=== PATIENT | male | born 1975 | race Caucasian/White ===

== ENCOUNTER 2020-07-06 19:12 | Emergency (ER) | payer OTHER ==
[~2020-07-06] VITALS: Ht 177.8 cm; Wt 149.7 kg
[~2020-07-06 19:12] MED LIST: ACET325 PO; ASMANEX110 MC1 INH; ASPIR 8181 M1 PO; BUPR150ER PO; BUSP5 PO; Ceftriaxone2 G1 IV; ENTRESTO 24 MG1 EACH PO; EPLE25 PO; FURO80 PO; MAGOXI400 PO; NEBI5 PO; OSTERA TABLET1 EACH PO; Omeprazole20 M1 PO; SOTO80 PO; TRAM50 PO
[2020-07-06] MEDS ORDERED: ENTRESTO 49 MG1 EAC2 PO (21:37)
[2020-07-06] MEDS ORDERED: Keflex250 MG PO (21:38)
[2020-07-06 22:31] LABS: BASOPHILS ABSOLUTE AUTO 0.05 K/mm3 (0.00-0.23); BASOPHILS PERCENT AUTO 1 % (0-2); EOSINOPHILS ABSOLUTE AUTO 0.04 K/mm3 (0.00-0.68); EOSINOPHILS PERCENT AUTO 0 % (0-6); Hematocrit 44.8 % (37.0-53.0); Hemoglobin 14.8 g/dL (13.5-17.5); IMMATURE GRAN ABSOLUTE AUTO 0.03 K/mm3 (0.00-0.10); IMMATURE GRAN PERCENT AUTO 0 % (0-1); LYMPHOCYTES ABSOLUTE AUTO 1.94 K/mm3 (0.84-5.20); LYMPHOCYTES PERCENT AUTO 19 % (21-46); MONOCYTES ABSOLUTE AUTO 0.68 K/mm3 (0.16-1.47); MONOCYTES PERCENT AUTO 7 % (4-13); Mean Corpuscular HGB 28.6 pg (26.0-34.0); Mean Corpuscular Volume 87 fL (80-100); Mean Platelet Volume 10.5 fL (9.1-12.4); NEUTROPHILS PERCENT AUTO 73 % (41-73); Platelet Count 150 K/mm3 (150-400); RDW Coefficient Variation 13.2 % (11.7-14.2); Red Blood Cell Count 5.17 M/mm3 (4.30-5.90); White Blood Cell Count 10.14 K/mm3 (4.00-11.30)
[2020-07-06 22:51] LABS: Alanine Aminotransfer (ALT/SGP 38 U/L (12-78); Albumin, Blood 3.5 g/dL (3.4-5.0); Albumin/Globulin Ratio 0.9 (0.8-1.8); Alk Phos 77 U/L (50-136); Anion Gap 6 mmol/L (6-16); Aspartate Aminotrans (AST/SGOT 24 U/L (12-37); Bilirubin, Total 1.6 mg/dL (0.1-1.0); Blood Urea Nitrogen 11 mg/dL (8-24); Bun/Creatinine Ratio 13.9 (12.0-20.0); CO2, Blood 30 mmol/L (21-32); Calcium, Blood 8.9 mg/dL (8.5-10.1); Chloride, Blood 104 mmol/L (98-108); Creatinine, Blood 0.79 mg/dL (0.60-1.20); Globulin, Blood 4.1 g/dL (2.2-4.0); Glomerular Filtration Rate >60 (60-); Glucose, Blood 113 mg/dL (70-99); Potassium, Blood 3.6 mmol/L (3.5-5.5); Sodium, Blood 140 mmol/L (136-145); Total Protein, Blood 7.6 g/dL (6.4-8.2); Troponin I <0.015 ng/mL (0.000-0.040)
[2020-07-07 00:38] LABS: Source, Urine Voided
[2020-07-07 00:40] LABS: Bilirubin, Urine Neg (Neg); Blood, Urine 1+ (Neg); Glucose Qualitative, Urine Neg (Neg); Ketones, Urine Neg (Neg); Leukocyte Esterase, Urine 1+ (Neg); Nitrite, Urine Neg (Neg); Protein, Urine Neg (Neg); Urobilinogen, Urine NORM (Normal)
[2020-07-07 00:44] LABS: Appearance, Urine Clear (Clear); Color, Urine Yellow (P-Yellow)
[2020-07-07 00:59] LABS: Bacteria Not Seen /hpf; Red Blood Cells, Urine Rare /hpf (0-2); Squamous Epithelial Cells Not Seen /hpf (Few); White Blood Cells, Urine Rare /hpf (0-5)
[2020-07-07 01:15] LABS: Influenza A, PCR Negative (NEGATIVE); Influenza B, PCR Negative (NEGATIVE); Resp Syncytial Virus, PCR Negative (NEGATIVE); SARS-Cov-2 (COVID-19) PCR, MMC Negative (NEGATIVE)
== END 2020-07-07 01:44 | disposition home or self-care (01) ==
LOC: ER 19:12
PROVIDERS: Emergency Medicine
DX: Z00.00 Encounter for general adult medical examination without abnormal findings (principal); I50.9 Heart failure, unspecified; Z88.0 Allergy status to penicillin; Z79.82 Long term (current) use of aspirin; Z79.899 Other long term (current) drug therapy; Z20.822 Contact with and (suspected) exposure to COVID-19
CPT/HCPCS: 0241U; 36415; 71045; 80053; 81001; 83605; 83880; 84484; 85025; 87040; 99284-25

== ENCOUNTER → 2021-07-24 | Outpatient (CLI) | payer BC ==
[~2021-07-24] MED LIST changes: +ENTRESTO 49 MG1 EAC2 PO; +Keflex250 MG PO
[2021-07-24 10:11] LABS: BASOPHILS ABSOLUTE AUTO 0.06 K/mm3 (0.00-0.23); BASOPHILS PERCENT AUTO 1 % (0-2); EOSINOPHILS ABSOLUTE AUTO 0.07 K/mm3 (0.00-0.68); EOSINOPHILS PERCENT AUTO 1 % (0-6); Hematocrit 43.3 % (37.0-53.0); Hemoglobin 13.6 g/dL (13.5-17.5); IMMATURE GRAN ABSOLUTE AUTO 0.04 K/mm3 (0.00-0.10); IMMATURE GRAN PERCENT AUTO 0 % (0-1); LYMPHOCYTES ABSOLUTE AUTO 1.06 K/mm3 (0.84-5.20); LYMPHOCYTES PERCENT AUTO 9 % (21-46); MONOCYTES ABSOLUTE AUTO 0.76 K/mm3 (0.16-1.47); MONOCYTES PERCENT AUTO 6 % (4-13); Mean Corpuscular HGB Conc 31.4 g/dL (31.5-36.5); Mean Corpuscular Volume 83 fL (80-100); Mean Platelet Volume 10.7 fL (9.1-12.4); NEUTROPHILS ABSOLUTE AUTO 9.95 K/mm3 (1.96-9.15); NEUTROPHILS PERCENT AUTO 83 % (41-73); Platelet Count 215 K/mm3 (150-400); RDW Coefficient Variation 17.7 % (11.7-14.2); RDW Standard Deviation 49.4 fL (35.1-46.3); Red Blood Cell Count 5.23 M/mm3 (4.30-5.90); White Blood Cell Count 11.94 K/mm3 (4.00-11.30)
[2021-07-24 10:37] LABS: Alanine Aminotransfer (ALT/SGP 19 U/L (12-78); Albumin, Blood 3.5 g/dL (3.4-5.0); Albumin/Globulin Ratio 0.8 (0.8-1.8); Alk Phos 68 U/L (40-126); Anion Gap 10 mmol/L (6-16); Aspartate Aminotrans (AST/SGOT 17 U/L (12-37); Bilirubin, Total 2.6 mg/dL (0.1-1.0); Blood Urea Nitrogen 17 mg/dL (8-24); Bun/Creatinine Ratio 15.5 (12.0-20.0); CO2, Blood 30 mmol/L (21-32); Calcium, Blood 8.9 mg/dL (8.5-10.1); Chloride, Blood 99 mmol/L (98-108); Globulin, Blood 4.4 g/dL (2.2-4.0); Glomerular Filtration Rate >60 (60-); Glucose, Blood 95 mg/dL (70-99); Sodium, Blood 139 mmol/L (136-145); Thyroid Stimulating Hormone 2.741 uIU/mL (0.360-4.800); Total Protein, Blood 7.9 g/dL (6.4-8.2)
== END ==
LOC: LAB SHORT 10:05 → LAB 10:05
PROVIDERS: Physician Assistant
DX: R53.83 Other fatigue (principal); Z79.82 Long term (current) use of aspirin
CPT/HCPCS: 80053; 83690; 83735; 83880; 84443; 84484; 85025; 85379

== ENCOUNTER 2021-08-12 14:09 | Inpatient (IN) | payer BC, OTHER ==
[~2021-08-12] VITALS: Ht 177.8 cm; Wt 152.4 kg
[~2021-08-12 14:09] MED LIST changes: +BUSP10 PO; -ENTRESTO 49 MG1 EAC2 PO
[2021-08-12 14:57] LABS: BASOPHILS ABSOLUTE AUTO 0.09 K/mm3 (0.00-0.23); BASOPHILS PERCENT AUTO 1 % (0-2); EOSINOPHILS ABSOLUTE AUTO 0.07 K/mm3 (0.00-0.68); EOSINOPHILS PERCENT AUTO 1 % (0-6); Hematocrit 48.7 % (37.0-53.0); Hemoglobin 15.1 g/dL (13.5-17.5); IMMATURE GRAN ABSOLUTE AUTO 0.04 K/mm3 (0.00-0.10); IMMATURE GRAN PERCENT AUTO 0 % (0-1); LYMPHOCYTES ABSOLUTE AUTO 1.15 K/mm3 (0.84-5.20); LYMPHOCYTES PERCENT AUTO 9 % (21-46); MONOCYTES ABSOLUTE AUTO 1.03 K/mm3 (0.16-1.47); MONOCYTES PERCENT AUTO 8 % (4-13); Mean Corpuscular HGB 25.6 pg (26.0-34.0); Mean Corpuscular Volume 83 fL (80-100); Mean Platelet Volume 10.9 fL (9.1-12.4); NEUTROPHILS ABSOLUTE AUTO 11.17 K/mm3 (1.96-9.15); NEUTROPHILS PERCENT AUTO 82 % (41-73); Platelet Count 297 K/mm3 (150-400); RDW Coefficient Variation 17.9 % (11.7-14.2); RDW Standard Deviation 51.7 fL (35.1-46.3); White Blood Cell Count 13.55 K/mm3 (4.00-11.30)
[2021-08-12 15:10] LABS: International Normalized Ratio 1.28; Prothrombin Time Results 13.2 Sec (9.7-11.5)
[2021-08-12 15:31] LABS: Alanine Aminotransfer (ALT/SGP 19 U/L (12-78); Albumin, Blood 3.3 g/dL (3.4-5.0); Albumin/Globulin Ratio 0.7 (0.8-1.8); Alk Phos 75 U/L (50-136); Anion Gap 6 mmol/L (6-16); Aspartate Aminotrans (AST/SGOT 40 U/L (12-37); Blood Urea Nitrogen 18 mg/dL (8-24); Bun/Creatinine Ratio 15.9 (12.0-20.0); CO2, Blood 30 mmol/L (21-32); Calcium, Blood 9.4 mg/dL (8.5-10.1); Chloride, Blood 96 mmol/L (98-108); Creatinine, Blood 1.13 mg/dL (0.60-1.20); Globulin, Blood 4.6 g/dL (2.2-4.0); Glomerular Filtration Rate >60 (60-); Glucose, Blood 131 mg/dL (70-99); Sodium, Blood 132 mmol/L (136-145); Total Protein, Blood 7.9 g/dL (6.4-8.2)
[2021-08-12 19:45] LABS: Influenza A, PCR NEGATIVE (NEGATIVE); Influenza B, PCR NEGATIVE (NEGATIVE); Resp Syncytial Virus, PCR NEGATIVE (NEGATIVE); SARS-Cov-2 (COVID-19) PCR, MMC NEGATIVE (NEGATIVE)
[2021-08-12 23:29] LABS: Percent Saturation 9.7 % (20.0-50.0)
--- NOTE | 2021-08-13 05:00 | NUR ---
PT CAME FROM THE ED DUE TO PCP REFERAL FOR INCREASED SOB, BLE EDEMA, AND ABD DISTENTION AND PAIN. UPON EXAMINATION PT IT VERY SOB AFTER ONLY WALKING A FEW STEPS AND EVEN AT REST. PT'S ABD IS VERY DISTENTED BUT DOES NOT STATED ANY PAIN UPON PALPITATION. PT IS ALERT AND ORIENTED X4, TELE MONITORED- ST-NSR, ON RA SATING >90, PT IS INDEPENDENT IN THE ROOM. PT IS EXPECTED TO HAVE A EGD WITH ANESTHESIA AND POSSIBLE PARACENTESIS TODAY. PT IS TO BE NPO AFTER NOON, PT MADE AWARE AND COMPLIANT. NO FURTHER EVENTS OVERNIGHT, PT CALL LIGHT AND BELONGINGS WITHIN REACH.
[2021-08-13 05:24] LABS: BASOPHILS ABSOLUTE AUTO 0.08 K/mm3 (0.00-0.23); BASOPHILS PERCENT AUTO 1 % (0-2); EOSINOPHILS ABSOLUTE AUTO 0.08 K/mm3 (0.00-0.68); EOSINOPHILS PERCENT AUTO 1 % (0-6); Hematocrit 44.8 % (37.0-53.0); Hemoglobin 13.7 g/dL (13.5-17.5); IMMATURE GRAN ABSOLUTE AUTO 0.06 K/mm3 (0.00-0.10); IMMATURE GRAN PERCENT AUTO 0 % (0-1); LYMPHOCYTES ABSOLUTE AUTO 1.17 K/mm3 (0.84-5.20); LYMPHOCYTES PERCENT AUTO 9 % (21-46); MONOCYTES ABSOLUTE AUTO 1.21 K/mm3 (0.16-1.47); MONOCYTES PERCENT AUTO 9 % (4-13); Mean Corpuscular HGB 25.3 pg (26.0-34.0); Mean Corpuscular HGB Conc 30.6 g/dL (31.5-36.5); Mean Corpuscular Volume 83 fL (80-100); Mean Platelet Volume 11.1 fL (9.1-12.4); NEUTROPHILS ABSOLUTE AUTO 10.89 K/mm3 (1.96-9.15); NEUTROPHILS PERCENT AUTO 81 % (41-73); Platelet Count 234 K/mm3 (150-400); RDW Coefficient Variation 17.6 % (11.7-14.2); RDW Standard Deviation 51.3 fL (35.1-46.3); Red Blood Cell Count 5.41 M/mm3 (4.30-5.90); White Blood Cell Count 13.49 K/mm3 (4.00-11.30)
[2021-08-13 05:35] LABS: International Normalized Ratio 1.3; Prothrombin Time Results 13.4 Sec (9.7-11.5)
[2021-08-13 05:48] LABS: Alanine Aminotransfer (ALT/SGP 15 U/L (12-78); Albumin/Globulin Ratio 0.8 (0.8-1.8); Alk Phos 68 U/L (50-136); Anion Gap 6 mmol/L (6-16); Aspartate Aminotrans (AST/SGOT 15 U/L (12-37); Bilirubin, Total 2.2 mg/dL (0.1-1.0); Blood Urea Nitrogen 19 mg/dL (8-24); Bun/Creatinine Ratio 16.1 (12.0-20.0); CO2, Blood 29 mmol/L (21-32); Calcium, Blood 8.9 mg/dL (8.5-10.1); Chloride, Blood 99 mmol/L (98-108); Creatinine, Blood 1.18 mg/dL (0.60-1.20); Globulin, Blood 3.8 g/dL (2.2-4.0); Glomerular Filtration Rate >60 (60-); Glucose, Blood 101 mg/dL (70-99); Potassium, Blood 4.8 mmol/L (3.5-5.5); Sodium, Blood 134 mmol/L (136-145); Total Protein, Blood 6.8 g/dL (6.4-8.2)
[2021-08-13 16:17] LABS: Automated BF RBC Count 0.002 M/mm3 (0-0); Automated BF WBC Count 2.046 K/mm3 (0-999); Body Fluid WBC Count 2046 /mm3 (0-999)
[2021-08-13 16:24] LABS: Albumin, Body Fluid 2.1 g/dL
[2021-08-13 16:27] LABS: Appearance, Body Fluid Cloudy (Clear); Color, Body Fluid Yellow (None-Yellow)
[2021-08-13 16:35] LABS: Glucose, Body Fluid 125 mg/dL; Lactate Dehydrogenase, Body Fl 85 U/L; Protein, Body Fluid 3.8 g/dL
--- NOTE | 2021-08-13 16:42 | NUR ---
This [facility] CM visited the patient in his room this morning. Patient was sitting upright on the edge of his bed, alert and pleasant. Patient confirmed his home address as [id number] [place] [address] in [place], and confirmed phone number. Phone number listed is the patient's , Elayne Smith. Pt states that is the best way to reach him. He lives in a single story home with one step to the entrance he uses. Reports that there is a large pillar he relies on to step-up to the entrance of the home. Patient uses a [id number] to travel around the large property. Patient's assists with all ADLs. 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 Patient uses cane in the home. He still drives but, mostly prefers spouse to drive. Patient confirms address is in [facility].
[2021-08-13 17:23] LABS: Total Cell Count, Body Fluid 100
--- NOTE | 2021-08-13 17:50 | NUR ---
08/13/21 1750 JANELLE WRIGHT History, Chart, Medications and Allergies reviewed before start of procedure. 3-LEAD EKG REVIEWED WITH PHYSICIAN PRIOR TO START OF PROCEDURE. O2 VIA POM INTACT THROUGHOUT SEDATION/PROCEDURE. MONITOR INTACT WITH CONTINUOUS PULSE OXIMETRY AND INTERMITTENT BP. GENERAL WITH DR. NEGRO.
--- NOTE | 2021-08-13 18:47 | NUR ---
SHIFT SUMMARY; PATIENT WAS NPO ALL DAY FOR EGD PROCEDURE AND PARACENTISIS. NO VERICES WERE FOUND DURING EGD PROCEDURE AND ONLY A FEW SMALL SAMPLES TAKEN TO CHECK FOR HPYLORI. PATIENT REQUIRED A LMA AND A NASAL TUBE FOR DEPRESSED BREATHING DURING PROCEDURE. HE WAS BROUGHT BACK TO ROOM AFTER HE RECOVERED FROM THE ANESTHESIA AND WAS AO X 4. FAMILY AT BEDSIDE CONVERSING WITH PATIENT. NO COMPLAINTS FROM PATIENT OF ABDOMENAL PAIN OR DISCOMFORT. 2.7 LITERS TAKEN OFF DURING PARACENTESIS. OK TO FEED PATIENT AT 1850 TONIGHT. RED RASH AREA NOTED TO BACK OF PATIENT AND INFORMED. ORDER FOR FLAGYL RECEIVED IV FOR DISCOLORED FLUIDS AFTER PARACENTESIS.
[2021-08-13] MEDS ORDERED: ENTRESTO 49 MG1 EAC2 PO (20:18)
--- NOTE | 2021-08-14 04:24 | NUR ---
SUMMARY: A/OX4, INDEPENDENT IN ROOM AND CALLS APPROPRIATELY TO SPECIFY NEEDS. HE DENIED PAIN AND ALL OTHER COMPLAINTS BUT ADMITS TO DIFFICULTY GETTING COMFORTABLE IN BED D/T ASCITES. PT STATED ABDO FEELS MORE FIRM W/WORSENING DISTENSION T/O NOCTE. IV ABX RECIEVED, LOW NA DIET FOLLOWED AND 1.5L FR REMAINS IN PLACE. RASH TO BACK IS IMPROVING AND BARELY NOTICEABLE. PT WAS NSR/ S.TACH AT 90'S-100'S BPM ON TELEMETRY. VSS/AFEBRILE AND NO ACUTE CHANGES. WCTM AND REPORT TO DAY RN.
[2021-08-14 09:11] LABS: HBSAG SCREEN Negative (Negative); HEP B CORE AB, TOT Negative (Negative); HEP C VIRUS AB 0.1 (0.0-0.9)
[2021-08-14 10:39] LABS: BASOPHILS ABSOLUTE AUTO 0.04 K/mm3 (0.00-0.23); BASOPHILS PERCENT AUTO 0 % (0-2); EOSINOPHILS ABSOLUTE AUTO 0.02 K/mm3 (0.00-0.68); EOSINOPHILS PERCENT AUTO 0 % (0-6); Hematocrit 47.7 % (37.0-53.0); Hemoglobin 14.6 g/dL (13.5-17.5); IMMATURE GRAN ABSOLUTE AUTO 0.04 K/mm3 (0.00-0.10); IMMATURE GRAN PERCENT AUTO 0 % (0-1); LYMPHOCYTES ABSOLUTE AUTO 0.65 K/mm3 (0.84-5.20); LYMPHOCYTES PERCENT AUTO 5 % (21-46); MONOCYTES PERCENT AUTO 7 % (4-13); Mean Corpuscular HGB 25.3 pg (26.0-34.0); Mean Corpuscular HGB Conc 30.6 g/dL (31.5-36.5); Mean Corpuscular Volume 83 fL (80-100); Mean Platelet Volume 10.7 fL (9.1-12.4); NEUTROPHILS ABSOLUTE AUTO 10.76 K/mm3 (1.96-9.15); NEUTROPHILS PERCENT AUTO 87 % (41-73); Platelet Count 226 K/mm3 (150-400); RDW Coefficient Variation 17.8 % (11.7-14.2); RDW Standard Deviation 51.2 fL (35.1-46.3); Red Blood Cell Count 5.77 M/mm3 (4.30-5.90); White Blood Cell Count 12.31 K/mm3 (4.00-11.30)
--- NOTE | 2021-08-14 10:50 | NUR ---
AM NOTE ASSUMED CARE OF PT. A+OX4. DENIES ANY PAIN. NO SOB AT REST, SOME SOB O/E. BLE 3+ PITTING EDEMA. PT WEL EDUCATED ON HIS DIAGNOSIS AND MEDICATIONS. SLIGHT RED RASH NOTED IN TWO CIRCLES ON HIS BACK PT SAID THIS IS IMPROVED. UP TO BR, STEADY GAIT. BED LOW, CALL LIGHT IN REACH. AT BEDSIDE.
[2021-08-14 10:54] LABS: Alanine Aminotransfer (ALT/SGP 17 U/L (12-78); Albumin, Blood 3.2 g/dL (3.4-5.0); Albumin/Globulin Ratio 0.8 (0.8-1.8); Alk Phos 71 U/L (50-136); Anion Gap 7 mmol/L (6-16); Aspartate Aminotrans (AST/SGOT 17 U/L (12-37); Bilirubin, Total 2.5 mg/dL (0.1-1.0); Blood Urea Nitrogen 20 mg/dL (8-24); Bun/Creatinine Ratio 16.8 (12.0-20.0); CO2, Blood 31 mmol/L (21-32); Calcium, Blood 8.9 mg/dL (8.5-10.1); Chloride, Blood 97 mmol/L (98-108); Creatinine, Blood 1.19 mg/dL (0.60-1.20); Globulin, Blood 4.2 g/dL (2.2-4.0); Glomerular Filtration Rate >60 (60-); Glucose, Blood 138 mg/dL (70-99); Potassium, Blood 4.3 mmol/L (3.5-5.5); Sodium, Blood 135 mmol/L (136-145); Total Protein, Blood 7.4 g/dL (6.4-8.2)
--- NOTE | 2021-08-14 11:22 | NUR ---
DR NGUYỄN IN TO SEE THE PT CHANGED BID LASIX TO 80MG IV FROM 60MG IV WITH A OT NOW DOSE OF 20MG IV LASIX. IVF FROM PROCEDURE DC'D.
--- NOTE | 2021-08-14 17:27 | NUR ---
SHIFT NOTE- MR DEANNA AND HIS HAVE HAD DISCUSSIONS WITH HIS DOCTORS ABOUT HIS MEDICAL DIAGNOSIS'S. HE HAS BEEN TEARFUL. HE HAD INCREASED LASIX DOSE TODAY, BUT UOP IS STILL DARK YELLOW IN COLOR. HE HAS BEEN CAREFUL TO DRINK WITHIN HIS FLUID RESTRICTION. HE C/O HIS STOMACH "NOT FEELING WELL" EARLIER, LIKE IT WAS CHURNING, BUT SAID THAT THE PROTONIX HELPED. ON TELEMETRY SR/ST PER TEST OPERATOR, FELT A BRIEF EPISODE OF CHEST DISCOMFORT AT THE TIME THAT THE TEST OPERATOR SAID THERE WAS A FOUR BEAT RUN OF VT. SYMPTOMS RESOLVED QUICKLY. NO SOB. CONTINUOUS PULSE OX SET UP BY RT. ABDOMEN REMAINS LARGE, ROUND, BLE PITTING EDEMA. RED RASH TO BACK AND REDNESS TO BLE. UP TO BR INDEPENDENTLY. BED LOW, CALL LIGHT IN REACH.
--- NOTE | 2021-08-14 19:22 | NUR ---
UPDATE TO PIV LEAKING AT PIV LAC SITE POST IV ABX. PIV REMOVED. ATTEMPTED INSERTION R AC AND L WRIST UNSUCCESSFUL ATTEMPTS. KRIS RUBIN RN AGREED TO PLACE PIV FOR MR HUERTA.
--- NOTE | 2021-08-15 04:29 | NUR ---
SHIFT SUMMARY AOX4 ABLE TO VOICE NEEDS DENIED PAIN ANS ALL OTHER COMPAINTS STATING HE FELLING MUCH BETTER TODAY SINCE HE STARTED LARGE DOES OF LASIX NO SOB OR ABDOMINAL PAIN PITTING EDEMA NO COUGHING HOME CPAP AT NIGHT.NO ACUTE CHANGE NOTED
--- NOTE | 2021-08-15 18:16 | NUR ---
SHIFT NOTE- MR HUERTA IS ALERT, ORIENTATED X4, NO CONFUSION. NO RESP DISTRESS, BUT OCCASIONALLY HAS SHORT EPISODES OF FEELING SOB LASTING SHORT PEIODS OF TIME, ON ROOM AIR, ON CONTINUOUS PULSE OX IN THE 90S. ON FLUID RESTRICTION, HE IS COMPLIANT AND CAREFUL WITH IT, LASIX CHANGED FROM IV TO PO WITH A VIEW TO POTENTIAL DISCHARGE HOME ON PO LASIX TOMORROW PER MD. BLE LESS EDEMA TODAY THAN YESTERDAY, AND PT REPORTS FEELING LESS ABDOMINAL SWELLING TODAY ALSO. IT WAS NOTED THIS EVENING WHEN I CALLED FOR MY TELEMETRY REPORT THAT PT HAD AN EVENT THIS MORNING ON TELE; STRIP IN THE CHART. IT LOOKS LIKE 7-8 BEAT RUN OF VT. ANOTHER 4 BEAT RUN HAPPENED AT 1400 PER CONTACT LENS BLOCKER IN THIS REPORT. PT NEVER REPORTED ANY CHEST PAIN. HE DOES C/O DIZZYNESS WHEN WALKING. HE DIDN'T CALL AND REPORT SOB/CP AT THE TIME OF THE TELEMETRY EVENTS.
--- NOTE | 2021-08-16 03:42 | NUR ---
SHIFT SUMMARY PATIENT HAD NO ACUTE CHANGES OBSERVED. AXOX 4 AND INDEPENDENT IN ROOM. PIV REMAINS INTACT. OFFAL SEPARATOR REPORTS ST 103. FLUID RESTRICTION 1,500. DENIES PAIN AND N/V. SOB WITH EXERTION. ON ROOM AIR. VSS/AFEBRILE. WATCHED TV FIRST PART OF SHIFT AND ABLE TO SLEEP. DR BLANCAS IN TO SEE PATIENT, REPORTS WILL LET HIM SLEEP. CALL LIGHT IN REACH. BED IN LOWEST POSITION. WILL CONTINUE TO MONITOR UNTIL DAY SHIFT NURSE ASSUMES CARE.
[2021-08-16 06:02] LABS: BASOPHILS ABSOLUTE AUTO 0.09 K/mm3 (0.00-0.23); BASOPHILS PERCENT AUTO 1 % (0-2); EOSINOPHILS ABSOLUTE AUTO 0.05 K/mm3 (0.00-0.68); EOSINOPHILS PERCENT AUTO 0 % (0-6); Hematocrit 45.7 % (37.0-53.0); Hemoglobin 13.8 g/dL (13.5-17.5); IMMATURE GRAN ABSOLUTE AUTO 0.05 K/mm3 (0.00-0.10); IMMATURE GRAN PERCENT AUTO 0 % (0-1); LYMPHOCYTES ABSOLUTE AUTO 0.95 K/mm3 (0.84-5.20); LYMPHOCYTES PERCENT AUTO 8 % (21-46); MONOCYTES ABSOLUTE AUTO 1.26 K/mm3 (0.16-1.47); MONOCYTES PERCENT AUTO 10 % (4-13); Mean Corpuscular HGB 24.9 pg (26.0-34.0); Mean Corpuscular HGB Conc 30.2 g/dL (31.5-36.5); Mean Corpuscular Volume 83 fL (80-100); Mean Platelet Volume 10.5 fL (9.1-12.4); NEUTROPHILS ABSOLUTE AUTO 9.95 K/mm3 (1.96-9.15); NEUTROPHILS PERCENT AUTO 81 % (41-73); Platelet Count 200 K/mm3 (150-400); RDW Coefficient Variation 17.5 % (11.7-14.2); RDW Standard Deviation 51.4 fL (35.1-46.3); Red Blood Cell Count 5.54 M/mm3 (4.30-5.90); White Blood Cell Count 12.35 K/mm3 (4.00-11.30)
[2021-08-16 06:34] LABS: Alanine Aminotransfer (ALT/SGP 15 U/L (12-78); Albumin, Blood 2.9 g/dL (3.4-5.0); Albumin/Globulin Ratio 0.7 (0.8-1.8); Alk Phos 61 U/L (50-136); Anion Gap 7 mmol/L (6-16); Aspartate Aminotrans (AST/SGOT 12 U/L (12-37); Bilirubin, Total 1.5 mg/dL (0.1-1.0); Blood Urea Nitrogen 21 mg/dL (8-24); Bun/Creatinine Ratio 19.1 (12.0-20.0); CO2, Blood 28 mmol/L (21-32); Calcium, Blood 8.5 mg/dL (8.5-10.1); Chloride, Blood 100 mmol/L (98-108); Globulin, Blood 4.1 g/dL (2.2-4.0); Glomerular Filtration Rate >60 (60-); Glucose, Blood 111 mg/dL (70-99); Potassium, Blood 3.8 mmol/L (3.5-5.5); Sodium, Blood 135 mmol/L (136-145)
[2021-08-16] MEDS ORDERED: CIPR500 PO (13:38)
[2021-08-16] MEDS ORDERED: Bumetanide2 MG PO (13:52)
--- NOTE | 2021-08-16 15:49 | NUR ---
THIS MORNING PATIENT EMOTIONAL R/T NEW DIAGNOSIS. SOB W/ CHANGING POSITION IN BED. LUNGS DIM AT BASES. +1 PITTING EDEMA BLE. PATIENT REQUESTING LASIX DC'd AND ASKING FOR A NEW DIURETIC. DR. WATKINS CAME INTO TO SEE PATIENT, CHANGED DIURTEX TO BUMEX, ORDERED CIPRO ABX, AND DISCHARGED PATIENT HOME TODAY. IV REMOVED. DISCHARGE TEACHING PROVIDED, PT/FAMILY VERBILIZED UNDERSTANDING AND FOLLOW-UP APPT ALREADY SCHEDULED FOR THURSDAY.
[2021-08-19 13:08] LABS: ALPHA-1-ANTITRYPSIN, SERUM 226 mg/dL (101-187)
== END 2021-08-16 13:48 | disposition home or self-care (01) | DRG 371 ==
LOC: ER 14:09 → MEDS 21:43 → ENPENDDIS 08-16 12:19 → MEDS 08-16 13:48
PROVIDERS: Emergency Medicine; Internal Medicine; Internal Medicine Gastroenterology; Physician Assistant; ADMIT Family Medicine
PROC: 0W9G3ZZ Drainage of Peritoneal Cavity, Percutaneous Approach (ICD-10-PCS; 2021-08-13)
PROC: 0DB68ZX Excision of Stomach, Via Natural or Artificial Opening Endoscopic, Diagnostic (ICD-10-PCS; principal; 2021-08-13 15:30)
DX: K65.2 Spontaneous bacterial peritonitis (principal); I50.43 Acute on chronic combined systolic (congestive) and diastolic (congestive) heart failure; I13.0 Hypertensive heart and chronic kidney disease with heart failure and stage 1 through stage 4 chronic kidney disease, or unspecified chronic kidney disease; R18.8 Other ascites; I50.42 Chronic combined systolic (congestive) and diastolic (congestive) heart failure; Z68.42 Body mass index [BMI] 45.0-49.9, adult; J94.8 Other specified pleural conditions; E87.1 Hypo-osmolality and hyponatremia; I42.0 Dilated cardiomyopathy; Z20.822 Contact with and (suspected) exposure to COVID-19; D72.829 Elevated white blood cell count, unspecified; K75.81 Nonalcoholic steatohepatitis (NASH); K74.60 Unspecified cirrhosis of liver; I48.0 Paroxysmal atrial fibrillation; Z86.16 Personal history of COVID-19; G47.33 Obstructive sleep apnea (adult) (pediatric); E66.01 Morbid (severe) obesity due to excess calories; N18.9 Chronic kidney disease, unspecified; R73.03 Prediabetes; Z79.82 Long term (current) use of aspirin; Z79.899 Other long term (current) drug therapy; Z98.890 Other specified postprocedural states; Z88.0 Allergy status to penicillin
CPT/HCPCS: 0241U; 36415; 49083; 71046; 80053; 82042; 82103; 82104; 82105; 82390; 82728; 82945; 83540; 83550; 83605; 83615; 83880; 84145; 84157; 85025; 85610; 85730; 86015; 86038; 86317; 86381; 86704; 86708; 86803; 87040; 87070; 87205; 87340; 88305; 88342; 89051; 93005; 93010; 94762; 96374; 99285-25; A9270; J0696; J1650; J1940; J2250; J2370; J2704; J3010

== ENCOUNTER 2021-08-27 16:53 | Inpatient (IN) | payer BC, OTHER ==
[~2021-08-27] VITALS: Ht 177.8 cm; Wt 140.6 kg
[~2021-08-27 16:53] MED LIST changes: +Bumetanide2 MG PO; +CIPR500 PO; +ENTRESTO 49 MG1 EAC2 PO
[2021-08-27 17:25] LABS: BASOPHILS ABSOLUTE AUTO 0.09 K/mm3 (0.00-0.23); BASOPHILS PERCENT AUTO 1 % (0-2); EOSINOPHILS ABSOLUTE AUTO 0.08 K/mm3 (0.00-0.68); EOSINOPHILS PERCENT AUTO 1 % (0-6); Hematocrit 46.1 % (37.0-53.0); Hemoglobin 14.3 g/dL (13.5-17.5); IMMATURE GRAN ABSOLUTE AUTO 0.08 K/mm3 (0.00-0.10); IMMATURE GRAN PERCENT AUTO 1 % (0-1); LYMPHOCYTES ABSOLUTE AUTO 0.97 K/mm3 (0.84-5.20); LYMPHOCYTES PERCENT AUTO 6 % (21-46); MONOCYTES PERCENT AUTO 11 % (4-13); Mean Corpuscular HGB 24.8 pg (26.0-34.0); Mean Corpuscular Volume 80 fL (80-100); Mean Platelet Volume 10.6 fL (9.1-12.4); NEUTROPHILS ABSOLUTE AUTO 13.53 K/mm3 (1.96-9.15); NEUTROPHILS PERCENT AUTO 81 % (41-73); Platelet Count 310 K/mm3 (150-400); RDW Coefficient Variation 18.1 % (11.7-14.2); RDW Standard Deviation 49.4 fL (35.1-46.3); Red Blood Cell Count 5.77 M/mm3 (4.30-5.90); White Blood Cell Count 16.65 K/mm3 (4.00-11.30)
[2021-08-27] MEDS ORDERED: FURO80 PO (17:28)
[2021-08-27 17:48] LABS: Albumin, Blood 3.1 g/dL (3.4-5.0); Albumin/Globulin Ratio 0.7 (0.8-1.8); Bilirubin, Total 1.9 mg/dL (0.1-1.0); Calcium, Blood 9.4 mg/dL (8.5-10.1); Creatinine, Blood 1.47 mg/dL (0.60-1.20); Globulin, Blood 4.4 g/dL (2.2-4.0); Potassium, Blood 4.7 mmol/L (3.5-5.5); Total Protein, Blood 7.5 g/dL (6.4-8.2)
[2021-08-27 18:35] LABS: Influenza A, PCR NEGATIVE (NEGATIVE); Influenza B, PCR NEGATIVE (NEGATIVE); Resp Syncytial Virus, PCR NEGATIVE (NEGATIVE); SARS-Cov-2 (COVID-19) PCR, MMC NEGATIVE (NEGATIVE)
[2021-08-27 19:44] LABS: Automated BF RBC Count 0.004 M/mm3 (0-0); Automated BF WBC Count 1.232 K/mm3 (0-999); Body Fluid WBC Count 1232 /mm3 (0-999); RBC Count, Body Fluid 4000 /mm3 (0-0)
[2021-08-27 19:54] LABS: Glucose, Body Fluid 132 mg/dL; Lactate Dehydrogenase, Body Fl 109 U/L; Protein, Body Fluid 3.7 g/dL
[2021-08-27 20:13] LABS: Appearance, Body Fluid Cloudy (Clear); Color, Body Fluid Yellow (None-Yellow)
[2021-08-27 20:23] LABS: Total Cell Count, Body Fluid 100
[2021-08-27] MEDS ORDERED: Cipro500 MG PO (22:39)
[2021-08-27] MEDS ORDERED: BUMETANIDE2 M6 PO (22:39)
[2021-08-27] MEDS ORDERED: SULFAMETHOXAZO1 EAC1 PO (22:39)
[2021-08-27] MEDS ORDERED: Aspir 8181 MG PO (22:42)
--- NOTE | 2021-08-28 01:32 | NUR ---
: DR LUJAN WAS IN ROOM DISCUSSING THE NEED FOR A GIRALDO TO BE PLACED. PATIENT WAS DTV AFTER ADMIN OF LASIX IN ER. PATIENT REPORTED A HISTORY OF DIFFICULTY PLACING GIRALDO. PATIENT WAS ABLE TO VOID 200ML OF DICK URINE WITH A PVR OF 33MLS. DR LUJAN WAS UNDATED ON VOID AND PVR. HOLD PLACEMENT OF GIRALDO FOR NOW WAS INSTRUCTIONS GIVEN.
[2021-08-28 05:35] LABS: BASOPHILS ABSOLUTE AUTO 0.08 K/mm3 (0.00-0.23); BASOPHILS PERCENT AUTO 1 % (0-2); EOSINOPHILS ABSOLUTE AUTO 0.01 K/mm3 (0.00-0.68); EOSINOPHILS PERCENT AUTO 0 % (0-6); Hematocrit 44.5 % (37.0-53.0); IMMATURE GRAN ABSOLUTE AUTO 0.06 K/mm3 (0.00-0.10); IMMATURE GRAN PERCENT AUTO 0 % (0-1); LYMPHOCYTES ABSOLUTE AUTO 0.72 K/mm3 (0.84-5.20); LYMPHOCYTES PERCENT AUTO 5 % (21-46); MONOCYTES ABSOLUTE AUTO 1.37 K/mm3 (0.16-1.47); MONOCYTES PERCENT AUTO 9 % (4-13); Mean Corpuscular HGB Conc 31.5 g/dL (31.5-36.5); Mean Corpuscular Volume 79 fL (80-100); Mean Platelet Volume 10.8 fL (9.1-12.4); NEUTROPHILS ABSOLUTE AUTO 12.37 K/mm3 (1.96-9.15); NEUTROPHILS PERCENT AUTO 85 % (41-73); Platelet Count 294 K/mm3 (150-400); RDW Coefficient Variation 17.8 % (11.7-14.2); RDW Standard Deviation 48.4 fL (35.1-46.3); Red Blood Cell Count 5.61 M/mm3 (4.30-5.90); White Blood Cell Count 14.61 K/mm3 (4.00-11.30)
[2021-08-28 06:18] LABS: Albumin, Blood 3.2 g/dL (3.4-5.0); Albumin/Globulin Ratio 0.8 (0.8-1.8); Bilirubin, Total 1.8 mg/dL (0.1-1.0); Bun/Creatinine Ratio 22.9 (12.0-20.0); Calcium, Blood 8.8 mg/dL (8.5-10.1); Creatinine, Blood 1.44 mg/dL (0.60-1.20); Globulin, Blood 4.1 g/dL (2.2-4.0); Potassium, Blood 5.1 mmol/L (3.5-5.5); Total Protein, Blood 7.3 g/dL (6.4-8.2)
--- NOTE | 2021-08-28 17:36 | NUR ---
PATIENT ALERT AND ORIENTED X 3-4. ON TELE MOMITORIMNG, PER TELE STRIP PATIENT HAD ACCELERATED IDIOVENTRICULAR RHYTM THIS MORNING, DR KELSEY NOTIFIED. PATIENT ON OXYGEN 2L/MIN, BASELINE. ON CARDIAC DIET. PARECENTESIS NOT INDICATED AT THIS TIME PER MD. CONTINUES ON LASIX IV. VOIDING WITHOUT DIFFICULTY. DENIES PAIN OR DISCOMFORT THROUGHOUT THE SHIFT.
--- NOTE | 2021-08-29 04:28 | NUR ---
SHIFT SUMMARY PATIENT HAD NO ACUTE CHANGES OBSERVED. AXOX 4 AND INDEPENDENT IN ROOM. PIV REMAINS INTACT. IV ABX INFUSED. RT IN TO SETUP CPAP WITH 2L O2 BLEED IN. VSS/AFEBRILE. DENIES PAIN AND N/V. SOB WITH EXERTION. MICE RAISER REPORTS NSR 101. COOPERATIVE WITH CARE. CALL LIGHT IN REACH. BED IN LOWEST POSITION. WILL CONTINUE TO MONITOR UNTIL DAY SHIFT NURSE ASSUMES CARE.
[2021-08-29 09:33] LABS: Anion Gap 7 mmol/L (6-16); Blood Urea Nitrogen 35 mg/dL (8-24); Bun/Creatinine Ratio 27.6 (12.0-20.0); CO2, Blood 29 mmol/L (21-32); Calcium, Blood 9.2 mg/dL (8.5-10.1); Chloride, Blood 91 mmol/L (98-108); Creatinine, Blood 1.27 mg/dL (0.60-1.20); Glomerular Filtration Rate >60 (60-); Glucose, Blood 138 mg/dL (70-99); Potassium, Blood 4.5 mmol/L (3.5-5.5); Sodium, Blood 127 mmol/L (136-145)
--- NOTE | 2021-08-29 15:22 | NUR ---
SHIFT SUMMARY: PATIENT ALERT AND ORIENTED X 3-4. ON TELE MOMITORIMNG, SEVERAL STRIP RECEIVED FROM TELE SHOWING RBBB BUNDLE FLIP AND JUNCTIONAL RHYTHM BBB ACCELERATED JUNC, SINUS RHYTHM CONVERTS OUT WELL PVC'S, PATIENT ASYMTOMATIC, V/S WNL. DR KELSEY NOTIFIED. CONTINUES ON LASIX IV, LASIX 18:00 DOSE ADMINISTRATED EARLY PER PATIENT REQUEST AND DR KELSEY APPROVAL. PATIENT VOIDING WITHOUT DIFFICULTY.
--- NOTE | 2021-08-30 04:10 | NUR ---
SHIFT SUMMARY ELECTRICIAN LOCOMOTIVE REPORTED WIDE QRS AND JUNCTIONAL RHYTHM X ONE. ENTERED PATIENT ROOM AND BACK TO NSR. PATIENT AWAKE AND ASYMPTOMATIC. AXOX 4 AND INDEPENDENT TO BR. DENIES SOB AND N/V. VSS/AFEBRILE. CPAP USED AT NIGHT WITH 2L O2 BLEED IN. REPORTS HE DID NOT SLEEP WELL LAST FEW NIGHTS. CALL LIGHT IN REACH. BED IN LOWEST POSITION. WILL CONTINUE TO MONITOR UNTIL DAY SHIFT NURSE ASSUMES CARE.
[2021-08-30 19:49] LABS: Adenovirus F 40/41 Not Detected (NOT DETECT); Astrovirus Not Detected (NOT DETECT); Campylobacter Sp Not Detected (NOT DETECT); Cryptosporidium Not Detected (NOT DETECT); Cyclospora Cayetanensis Not Detected (NOT DETECT); E. Coli O157 Not Detected (NOT DETECT); Entamoeba Histolytica Not Detected (NOT DETECT); Enteroaggregative E. coli-EAEC Not Detected (NOT DETECT); Enteropathogenic E. coli-EPEC Not Detected (NOT DETECT); Enterotoxigenic E. coli-ETEC Not Detected (NOT DETECT); Giardia Lamblia Not Detected (NOT DETECT); Norovirus GI/GII Not Detected (NOT DETECT); Plesiomonas Shigelloides Not Detected (NOT DETECT); Rotavirus A Not Detected (NOT DETECT); Salmonella Sp Not Detected (NOT DETECT); Sapovirus Not Detected (NOT DETECT); Shiga Toxin-prod E. coli-STEC Not Detected (NOT DETECT); Shigella/Enteroin E. coli-EIEC Not Detected (NOT DETECT); Vibrio Cholerae Not Detected (NOT DETECT); Vibrio Sp Not Detected (NOT DETECT); Yersinia Enterocolitica Not Detected (NOT DETECT)
--- NOTE | 2021-08-31 05:49 | NUR ---
SHIFT SUMMARY PT IS A 46 Y/O MALE, ADMITTED FOR PULMONARY EDEMA. HE IS A&O X 4, INDEPENDENT IN THE ROOM. NO C/O ACUTE PAIN OR NAUSEA, MILD SOB REPORTED WITH EXERTION. TELE SHOWED NSR WITH OCCASIONAL JUNCTIONAL RHYTHM IN THE 100S. AND TWO RUNS OF V-TACH NOTED WHEN PT UP TO THE BATHROOM. VITAL SIGNS OTHERWISE STABLE. NO OTHER ACUTE CHANGES IN PT CONDITION NOTED DURING THE NIGHT. WILL CONTINUE TO MONITOR AND TREAT PER EMAR UNTIL HAND OFF TO DAY SHIFT RN.
[2021-08-31 06:00] LABS: BASOPHILS ABSOLUTE AUTO 0.09 K/mm3 (0.00-0.23); BASOPHILS PERCENT AUTO 1 % (0-2); EOSINOPHILS PERCENT AUTO 2 % (0-6); Hematocrit 47.4 % (37.0-53.0); Hemoglobin 14.9 g/dL (13.5-17.5); IMMATURE GRAN ABSOLUTE AUTO 0.04 K/mm3 (0.00-0.10); IMMATURE GRAN PERCENT AUTO 0 % (0-1); LYMPHOCYTES ABSOLUTE AUTO 0.85 K/mm3 (0.84-5.20); LYMPHOCYTES PERCENT AUTO 7 % (21-46); MONOCYTES ABSOLUTE AUTO 1.17 K/mm3 (0.16-1.47); MONOCYTES PERCENT AUTO 9 % (4-13); Mean Corpuscular HGB Conc 31.4 g/dL (31.5-36.5); Mean Corpuscular Volume 80 fL (80-100); Mean Platelet Volume 10.9 fL (9.1-12.4); NEUTROPHILS ABSOLUTE AUTO 10.13 K/mm3 (1.96-9.15); NEUTROPHILS PERCENT AUTO 81 % (41-73); Platelet Count 257 K/mm3 (150-400); RDW Coefficient Variation 18.1 % (11.7-14.2); Red Blood Cell Count 5.95 M/mm3 (4.30-5.90); White Blood Cell Count 12.58 K/mm3 (4.00-11.30)
[2021-08-31 06:10] LABS: International Normalized Ratio 1.26
[2021-08-31 06:15] LABS: Alanine Aminotransfer (ALT/SGP 18 U/L (12-78); Albumin, Blood 3.2 g/dL (3.4-5.0); Albumin/Globulin Ratio 0.7 (0.8-1.8); Alk Phos 106 U/L (50-136); Anion Gap 6 mmol/L (6-16); Aspartate Aminotrans (AST/SGOT 16 U/L (12-37); Bilirubin, Total 1.1 mg/dL (0.1-1.0); Blood Urea Nitrogen 29 mg/dL (8-24); Bun/Creatinine Ratio 25.7 (12.0-20.0); CO2, Blood 29 mmol/L (21-32); Chloride, Blood 91 mmol/L (98-108); Creatinine, Blood 1.13 mg/dL (0.60-1.20); Globulin, Blood 4.3 g/dL (2.2-4.0); Glomerular Filtration Rate >60 (60-); Glucose, Blood 112 mg/dL (70-99); Potassium, Blood 4.4 mmol/L (3.5-5.5); Sodium, Blood 126 mmol/L (136-145); Total Protein, Blood 7.5 g/dL (6.4-8.2)
[2021-08-31 12:57] LABS: Anion Gap 9 mmol/L (6-16); Blood Urea Nitrogen 28 mg/dL (8-24); Bun/Creatinine Ratio 27.7 (12.0-20.0); CO2, Blood 27 mmol/L (21-32); Chloride, Blood 92 mmol/L (98-108); Creatinine, Blood 1.01 mg/dL (0.60-1.20); Glomerular Filtration Rate >60 (60-); Glucose, Blood 136 mg/dL (70-99); Potassium, Blood 4.2 mmol/L (3.5-5.5); Sodium, Blood 128 mmol/L (136-145)
--- NOTE | 2021-08-31 17:49 | NUR ---
PT ARRIVED TO PCU 19 AT 1315 THIS AFTERNOON. PT ALERT AND ORIENTED X 4, ABLE TO STAND AND TRANSFER TO BED. NO C/O CHEST PAIN ON ARRIVAL. IDIOVENTRICULAR RHYTHM HR 100s NOTED ON PERINATAL TECH. PT DID HAVE ONE 10 BEAT RUN OF VTACH SINCE TRANSFER FROM [address]RD [address] BEAN IN ROOM FOR CARDIOLOGY CONSULT, NO NEW ORDERS AT THIS TIME. PT'S AT BEDSIDE TO VISIT. PT MEDICATED FOR NAUSEA PER MD ORDERS. PT C/O NASAL CONGESTION "DRAINING DOWN THE BACK OF MY THROAT" CAUSING HIM TO COUGH. STATES HE TAKES PSEUDAPHED AT HOME. NO ACUTE CHANGES SINCE ARRIVING TO PCU. CALL LIGHT IN REACH, WILL CONTINUE TO MONITOR AND GIVE REPORT TO NOC SHIFT RN.
[2021-09-01 04:00] LABS: BASOPHILS ABSOLUTE AUTO 0.09 K/mm3 (0.00-0.23); BASOPHILS PERCENT AUTO 1 % (0-2); EOSINOPHILS ABSOLUTE AUTO 0.13 K/mm3 (0.00-0.68); EOSINOPHILS PERCENT AUTO 1 % (0-6); Hematocrit 45.8 % (37.0-53.0); Hemoglobin 14.6 g/dL (13.5-17.5); IMMATURE GRAN ABSOLUTE AUTO 0.07 K/mm3 (0.00-0.10); IMMATURE GRAN PERCENT AUTO 1 % (0-1); LYMPHOCYTES ABSOLUTE AUTO 0.91 K/mm3 (0.84-5.20); LYMPHOCYTES PERCENT AUTO 6 % (21-46); MONOCYTES ABSOLUTE AUTO 1.43 K/mm3 (0.16-1.47); MONOCYTES PERCENT AUTO 10 % (4-13); Mean Corpuscular HGB 25.3 pg (26.0-34.0); Mean Corpuscular HGB Conc 31.9 g/dL (31.5-36.5); Mean Corpuscular Volume 79 fL (80-100); Mean Platelet Volume 10.3 fL (9.1-12.4); NEUTROPHILS ABSOLUTE AUTO 11.55 K/mm3 (1.96-9.15); NEUTROPHILS PERCENT AUTO 82 % (41-73); Platelet Count 272 K/mm3 (150-400); RDW Standard Deviation 48.5 fL (35.1-46.3); Red Blood Cell Count 5.77 M/mm3 (4.30-5.90); White Blood Cell Count 14.18 K/mm3 (4.00-11.30)
[2021-09-01 04:05] LABS: Alanine Aminotransfer (ALT/SGP 20 U/L (12-78); Albumin, Blood 2.9 g/dL (3.4-5.0); Albumin/Globulin Ratio 0.8 (0.8-1.8); Alk Phos 88 U/L (50-136); Anion Gap 6 mmol/L (6-16); Aspartate Aminotrans (AST/SGOT 20 U/L (12-37); Bilirubin, Total 1.2 mg/dL (0.1-1.0); Blood Urea Nitrogen 34 mg/dL (8-24); Bun/Creatinine Ratio 28.6 (12.0-20.0); CO2, Blood 27 mmol/L (21-32); Calcium, Blood 8.7 mg/dL (8.5-10.1); Chloride, Blood 91 mmol/L (98-108); Creatinine, Blood 1.19 mg/dL (0.60-1.20); Globulin, Blood 3.8 g/dL (2.2-4.0); Glomerular Filtration Rate >60 (60-); Glucose, Blood 90 mg/dL (70-99); Magnesium, Blood 2.2 mg/dL (1.6-2.4); Potassium, Blood 4.5 mmol/L (3.5-5.5); Sodium, Blood 124 mmol/L (136-145); Total Protein, Blood 6.7 g/dL (6.4-8.2)
--- NOTE | 2021-09-01 06:53 | NUR ---
PT'S HEART RHYTHM WAS PRIMARILY IN AN ACCELERATED IDIOVENTRICULAR RATE THROUGHOUT MOST OF THE PSYCHOSOCIAL REHABILITATION COUNSELOR, WITH RATES INTO THE 110S AT TIMES. BLOOD PRESSURE REMAINED STABLE IN THE 100S/60S AND PT DENIED ANY SHORTNESS OF BREATH AT REST, NO CHEST PAIN OR PRESSURE, BUT DOES ENDORSE SOME LIGHTHEADEDNESS WITH CHANGE OF POSITION. PT REPORTS THAT THE LIGHTHEADEDNESS IS NOT NEW AND HAS BEEN GOING ON FOR A COUPLE MONTHS NOW. THE FOURTH DOSE OF LACTULOSE WAS NOT GIVEN - PT REFUSED THE MED AFTER REPORTING THAT HE HAD 3 BOWEL MOVEMENTS DURING THE DAY AND THAT HE WAS ADVISED BY HIS DOCTOR THAT ONCE HAS HAD 3 BOWEL MOVEMENTS IN A DAY TO FOREGO ANY REMAINING DOSES FOR THE DAY. PT'S SLEEP WAS INTERMITTENT THROUGH THE NIGHT AFTER APPROXIMATELY 2330, GETTING LESS THAN A COUPLE HOURS OF SLEEP. 06:20 PT STATED THIS MORNING THAT HE IS FEELING ANXIOUS. INITIALLY, HE SAID HE DIDN'T KNOW WHY HE FELT SO ANXIOUS AND THEN BECAME QUITE TEARFUL. HE DENIED HAVING SUCH A FEELING AT HOME AND HE FEELS LIKE HE IS LOSING CONTROL OF HIS LIFE BECAUSE OF HIS HEALTH ISSUES. I REMAINED WITH HIM, PROVIDED ACTIVE LISTENING AND ASSISTED HIM WITH SOME RELAXATION EXERCISES. I OBSERVED THE PT TO BE LESS TEARFUL AND CALMER BEFORE LEAVING HIS ROOM.
--- NOTE | 2021-09-01 09:34 | NUR ---
DR KELSEY NOTIFIED OF PT'S NA LEVEL 124. PT STATES THAT HE WANTS TO GO HOME TODAY. DR KELSEY MADE AWARE AND WILL COME TALK TO THE PT LATER TODAY HE DOES NOT FEEL THE PT SHOULD BE DISCHARGED AT THIS TIME. WILL CONTINUE TO MONITOR.
[2021-09-01] MEDS ORDERED: METO25ER PO (16:07)
[2021-09-01] MEDS ORDERED: Enulose10 GM/15 M PO (16:07)
[2021-09-01] MEDS ORDERED: VANCOCIN HCL125 MG PO (16:08)
--- NOTE | 2021-09-01 16:45 | NUR ---
PT DISCHARGED HOME WITH HIS , ALL BELONGINGS SENT WITH PT. IV REMOVED WNL. DISCHARGE TEACHING INCLUDING MEDICATION LIST, FOLLOW UP APPOINTMENTS AND EDUCATION REVIEWED WITH PT AND HIS . NO QUESTIONS OR CONCERNS AT THE TIME OF DISCHARGE. PT AND VERBALIZE UNDERSTANDING OF MEDICATION LIST AND FOLLOW UP APPOINTMENTS. NO FURTHER DISCHARGE NEEDS IDENTIFIED. RXs CALLED INTO [facility] PER PT REQUEST.
== END 2021-09-01 16:30 | disposition home or self-care (01) | DRG 871 ==
LOC: ER 16:53 → MEDS 22:05 → PCU 22:05 → MEDS 22:52 → PCU 08-31 13:25
PROVIDERS: Family Medicine; Internal Medicine; Physician Assistant; Student in an Organized Health Care Education/Training Program; ADMIT Internal Medicine
PROC: 0W9G3ZZ Drainage of Peritoneal Cavity, Percutaneous Approach (ICD-10-PCS; principal; 2021-08-27)
PROC: 3E03329 Introduction of Other Anti-infective into Peripheral Vein, Percutaneous Approach (ICD-10-PCS; 2021-08-27)
DX: A41.4 Sepsis due to anaerobes (principal); I50.43 Acute on chronic combined systolic (congestive) and diastolic (congestive) heart failure; A04.72 Enterocolitis due to Clostridium difficile, not specified as recurrent; Z68.42 Body mass index [BMI] 45.0-49.9, adult; N17.9 Acute kidney failure, unspecified; E87.1 Hypo-osmolality and hyponatremia; R18.8 Other ascites; I42.0 Dilated cardiomyopathy; I47.2 Ventricular tachycardia; K76.6 Portal hypertension; Z20.822 Contact with and (suspected) exposure to COVID-19; I95.9 Hypotension, unspecified; K72.90 Hepatic failure, unspecified without coma; K74.60 Unspecified cirrhosis of liver; F41.9 Anxiety disorder, unspecified; E66.9 Obesity, unspecified; G47.33 Obstructive sleep apnea (adult) (pediatric); F17.290 Nicotine dependence, other tobacco product, uncomplicated; Z88.0 Allergy status to penicillin; Z88.1 Allergy status to other antibiotic agents; Z79.899 Other long term (current) drug therapy; Z95.810 Presence of automatic (implantable) cardiac defibrillator; Z79.82 Long term (current) use of aspirin
CPT/HCPCS: 0097U; 0241U; 36415; 71045; 76705; 80048; 80053; 82945; 83605; 83615; 83690; 83735; 83880; 84157; 84484; 85025; 85610; 87070; 87075; 87205; 87324; 89051; 93005; 93010; 94660; 94760; 94762; 96374; 96375; 97110; 97161; 97530; 99285-25; A9270; J0696; J1650; J1940; J2270; J2405; P9046